=== PATIENT | male | born 1970 | race Caucasian/White ===

== ENCOUNTER 2019-01-25 01:06 | Emergency (ER) | payer SELFPAY ==
[~2019-01-25] VITALS: Ht 172.7 cm; Wt 90.7 kg
[2019-01-25 01:10] VITALS: BP 147/86; Ht 172.7 cm; Wt 90.7 kg
== END 2019-01-25 01:47 | disposition home or self-care (01) ==
LOC: ED 01:06
DX: R10.13 Epigastric pain (principal); R11.0 Nausea